=== PATIENT | female | born 1960 | race American Indian/Alaskan Native ===

== ENCOUNTER 2020-06-02 11:21 | Emergency (ER) | payer OTHER ==
[2020-06-02 11:37] VITALS: BP 137/78
[2020-06-02] MEDS ORDERED: dexAMETHasone 20 MG/5 ML VIAL IV ONE (12:40)
[2020-06-02 13:05] LABS: Basophils # (Auto) 0.1 K/mm3 (0.0-0.1); Basophils % (Auto) 0.8 % (0.0-1.8); Eosinophils # (Auto) 0.5 K/mm3 (0.0-0.4); Eosinophils % (Auto) 5.2 % (0.0-4.3); Hematocrit 41.5 % (30.3-42.9); Lymphocytes # (Auto) 2.5 K/mm3 (1.2-5.4); Lymphocytes % (Auto) 26.6 % (13.4-35.0); Mean Corpuscular HGB Conc 34 % (30-34); Mean Corpuscular Volume 90 fl (79-97); Monocytes # (Auto) 0.6 K/mm3 (0.0-0.8); Monocytes % (Auto) 6.1 % (0.0-7.3); Platelet Count 363 K/mm3 (140-440); Red Blood Count 4.61 M/mm3 (3.65-5.03); Red Cell Distribution Width 12.8 % (13.2-15.2)
[2020-06-02 13:14] LABS: Blood Urea Nitrogen 14 mg/dL (7-17); Calcium 10.1 mg/dL (8.4-10.2); Hemolysis Index 0
[2020-06-02 13:24] LABS: BUN/Creatinine Ratio 20
--- NOTE | 2020-06-02 13:57 | Emergency Department Report ---
ED ENT HPI - General Chief complaint: Dental/Oral Stated complaint: FACIAL SWELLING/ORAL Time Seen by Provider: 06/02/20 11:54 Source: patient Mode of arrival: Ambulatory Limitations: No Limitations - History of Present Illness Initial comments: This is a 59-year-old female nontoxic, well nourished in appearance, no acute signs of distress presents to the ED with c/o of left lower mandible swelling and toothache 3 days. Patient she had dental workup a few days prior to these symptoms but has not been placed on any antibiotics. Patient describes t oothache as aching level of 8 out of 10. Patient denies any numbness, tingling, fever, chills, headache, stiff neck, abdominal pain, chest pain, shortness of breath. Patient denies any drug allergies. MD complaint: tooth pain -: days(s) Location: tooth # 1 - pain here Severity: mild Severity scale (0 -10): 8 Quality: aching Consistency: constant Improves with: none Worsens with: none Associated Symptoms: gum swelling, toothache. denies: fever, cough, pain with swallowing, sore throat, tinnitus, hearing loss, discharge from ear, rhinorrhea - Related Data Previous Rx's Medication Instructions Recorded Last Taken Type Chlorhexidine Mouthwash [Peridex] 15 ml MM BID #1 bottle 06/02/20 Unknown Rx Clindamycin [Clindamycin CAP] 300 mg PO Q8H #21 cap 06/02/20 Unknown Rx Allergies Allergy/AdvReac Type Severity Reaction Status Date / Time No Known Allergies Allergy Unverified 06/02/20 11:34 ED Dental HPI - General Chief complaint: Dental/Oral Stated complaint: FACIAL SWELLING/ORAL Time Seen by Provider: 06/02/20 11:54 Source: patient Mode of arrival: Ambulatory Limitations: No Limitations - Related Data Previous Rx's Medication Instructions Recorded Last Taken Type Chlorhexidine Mouthwash [Peridex] 15 ml MM BID #1 bottle 06/02/20 Unknown Rx Clindamycin [Clindamycin CAP] 300 mg PO Q8H #21 cap 06/02/20 Unknown Rx Allergies Allergy/AdvReac Type Severity Reaction Status Date / Time No Known Allergies Allergy Unverified 06/02/20 11:34 ED Review of Systems ROS: Stated complaint: FACIAL SWELLING/ORAL Other details as noted in HPI Comment: All other systems reviewed and negative Constitutional: denies: chills, fever Eyes: denies: eye pain, eye discharge, vision change ENT: dental pain. denies: ear pain, throat pain Respiratory: denies: cough, shortness of breath, wheezing Cardiovascular: denies: chest pain, palpitations Endocrine: no symptoms reported Gastrointestinal: denies: abdominal pain, nausea, diarrhea Genitourinary: denies: urgency, dysuria, discharge Musculoskeletal: denies: back pain, joint swelling, arthralgia Skin: denies: rash, lesions Neurological: denies: headache, weakness, paresthesias Psychiatric: denies: anxiety, depression Hematological/Lymphatic: denies: easy bleeding, easy bruising ED Past Medical Hx - Past Medical History Previous Medical History?: Yes Hx Hypertension: Yes Hx Diabetes: Yes - Surgical History Past Surgical History?: Yes Additional Surgical History: Oral - Social History Smoking Status: Never Smoker Substance Use Type: Alcohol - Medications Home Medications: Home Medications Medication Instructions Recorded Confirmed Last Taken Type Chlorhexidine Mouthwash [Peridex] 15 ml MM BID #1 bottle 06/02/20 Unknown Rx Clindamycin [Clindamycin CAP] 300 mg PO Q8H #21 cap 06/02/20 Unknown Rx ED Physical Exam - General Limitations: No Limitations General appearance: alert, in no apparent distress - Head Head exam: Present: atraumatic, normocephalic - Eye Eye exam: Present: normal appearance - Expanded ENT Exam Expanded Ear exam: Present: normal external inspection Mouth exam: Present: normal external inspection, tongue normal. Absent: drooling, trismus, muffled voice Teeth exam: Present: dental tenderness #, gingival enlargement, other (slight slight left lower mandible swelling) Throat exam: Positive: normal inspection, other (uvula midline). Negative: tonsillar erythema, tonsillomegaly, tonsillar exudate, R peritonsillar mass, L peritonsillar mass - Neck Neck exam: Present: normal inspection, full ROM. Absent: tenderness, meningismus, lymphadenopathy - Respiratory Respiratory exam: Absent: respiratory distress - Cardiovascular Cardiovascular Exam: Present: regular rate - Extremities Exam Extremities exam: Present: full ROM - Back Exam Back exam: Present: full ROM - Neurological Exam Neurological exam: Present: alert, oriented X3, normal gait - Psychiatric Psychiatric exam: Present: normal affect, normal mood - Skin Skin exam: Present: warm, dry, intact, normal color. Absent: rash ED Course Vital Signs 06/02/20 11:36 Temperature 98.6 F Pulse Rate 83 Respiratory 16 Rate Blood Pressure 137/78 O2 Sat by Pulse 98 Oximetry - Reevaluation(s) Reevaluation #1: 06/02/20 13:56 Patient is speaking in full sentences with no signs of distress noted. ED Medical Decision Making - Lab Data Result diagrams: 06/02/20 12:20 06/02/20 12:20 Lab Results 06/02/20 06/02/20 Range/Units 12:20 12:20 WBC 9.3 (4.5-11.0) K/mm3 RBC 4.61 (3.65-5.03) M/mm3 Hgb 14.0 (10.1-14.3) gm/dl Hct 41.5 (30.3-42.9) % MCV 90 (79-97) fl MCH 30 (28-32) pg MCHC 34 (30-34) % RDW 12.8 L (13.2-15.2) % Plt Count 363 (140-440) K/mm3 Lymph % (Auto) 26.6 (13.4-35.0) % [place] % (Auto) 6.1 (0.0-7.3) % Eos % (Auto) 5.2 H (0.0-4.3) % Baso % (Auto) 0.8 (0.0-1.8) % Lymph # (Auto) 2.5 (1.2-5.4) K/mm3 [place] # (Auto) 0.6 (0.0-0.8) K/mm3 Eos # (Auto) 0.5 H (0.0-0.4) K/mm3 Baso # (Auto) 0.1 (0.0-0.1) K/mm3 Seg Neutrophils % 61.3 (40.0-70.0) % Seg Neutrophils # 5.7 (1.8-7.7) K/mm3 Sodium 137 (137-145) mmol/L Potassium 3.9 (3.6-5.0) mmol/L Chloride 98.0 (98-107) mmol/L Carbon Dioxide 27 (22-30) mmol/L Anion Gap 16 mmol/L BUN 14 (7-17) mg/dL Creatinine 0.7 (0.6-1.2) mg/dL Estimated GFR > 60 ml/min BUN/Creatinine Ratio 20 % Glucose 111 H (65-100) mg/dL Calcium 10.1 (8.4-10.2) mg/dL - Radiology Data Referring Physician: LUZ MARIA ALBRIGHT Patient Name: ELDA GERARDO Date of : 1960 Sex: Female Report Date: 2020-06-02 Report Status: [place] [address] Cat Scan Report Signed Patient: ELDA GERARDO MR#: [id number] : 1960 Acct:[id number] Age/Sex: 59 / F ADM Date: 06/02/20 Loc: ED Attending Dr: Ordering Physician: LUZ MARIA ALBRIGHT NP Date of Service: 06/02/20 Procedure(s): CT neck w con Accession Number(s): [id number] cc: LUZ MARIA ALBRIGHT NP CT neck w con INDICATION / CLINICAL INFORMATION: 59 years Female; mandibular pain and swelling. TECHNIQUE: Contiguous thin cut axial images obtained through the neck following IV contrast. Sagittal and coronal reconstructions performed by the technologist. All CT scans at this location are performed using CT dose reduction for ALARA by means of automated exposure control. COMPARISON: None available. FINDINGS: There are notable inflammatory changes involving the left buccal soft tissues. Additionally, there is lucency surrounding the root of the left mandibular incisor inflammatory changes appear to be on an odontogenic basis. There is notable streak artifact resulting from the patient's history artifact. However, there is no clear evidence of well-defined fluid collection on the current study to indicate abscess. MUCOSAL SPACE: No fluid collections are seen involving palatine soft tissues. The epiglottis is appropriate in size at. There is effacement of the left pyriform sinus which may be seen is anatomic variant. There is motion and this region without clear evidence of focal lesion. LYMPH NODES: There are scattered cervical lymph nodes most notably within the left jugulodigastric region with the largest measuring 0.9 cm in short axis dimension. These nodes are likely reactive. A similar sized note is also seen within the adjacent left submandibular region. SALIVARY GLANDS: The visualized parotid and submandibular glands demonstrate symmetric attenuation without calcification. THYROID GLAND: Unremarkable. PARANASAL SINUSES: There are mo derate degenerative disc changes at C5-6. SPINE: No significant abnormality of the cervical spine appreciated. VASCULAR STRUCTURES: Vascular structures are grossly normal in appearance. IMPRESSION: 1. There are notable inflammatory changes involving the visualized left buccal soft tissues. Furthermore, there is lucency surrounding the root of the left mandibular incisor and the inflammatory changes would appear to be on an odontogenic basis as detailed above. Signer Name: Chintan Faulkner MD Signed: 06/02/2020 3:36 PM Workstation Name: [id number] Transcribed By: MR Dictated By: Chintan Faulkner MD Electronically Authenticated By: Chintan Faulkner MD Signed Date/Time: 06/02/206 DD/ 152 TD/TT: - Medical Decision Making 59-year-old female that presents with left mandible swelling and dental pain. Patient is stable and was examined by me. Patient received Decadron and clindamycin prior to CT results. Patient be treated with clindamycin. Patient is notified of the CT and lab results with no questions noted by the patient. Patient was instructed to follow-up with a dentist doctor in 3-5 days or if symptoms worsen and continue return to emergency room as soon as possible. At time of discharge, the patient does not seem toxic or ill in appearance. No acute signs of distress noted. Patient agrees to discharge treatment plan of care. No further questions noted by the patient. Critical care attestation.: If time is entered above; I have spent that time in minutes in the direct care of this critically ill patient, excluding procedure time. ED Disposition Clinical Impression: Pain, dental, Swelling of mandible, Gingivitis Disposition: TO HOME OR SELFCARE Is pt being admited?: No Does the pt Need Aspirin: No Condition: Stable Instructions: Dental Abscess Additional Instructions: Follow-up with a dentist doctor in 3-5 days or if symptoms worsen and continue return to emergency room as soon as possible. Prescriptions: Clindamycin [Clindamycin CAP] 300 mg PO Q8H #21 cap Chlorhexidine Mouthwash [Peridex] 15 ml MM BID #1 bottle Referrals: PRIMARY CAREMD [Primary Care Provider] - 3-5 Days NICHOLAS ERNANDEZ MD [Staff Physician] - 3-[address] [facility] [Outside] - 3-5 Days Time of Disposition: 16:05
--- NOTE | 2020-06-02 15:40 | Cat Scan Report ---
CT neck w con INDICATION / CLINICAL INFORMATION: 59 years Female; mandibular pain and swelling. TECHNIQUE: Contiguous thin cut axial images obtained through the neck following IV contrast. Sagittal and hahn l reconstructions performed by the technologist. All CT scans at this location are performed using CT dose reduction for ALARA by means of automated exposure control. COMPARISON: None available. FINDINGS: There are notable inflammatory changes involving the left buccal soft tissues. Additionally , there is lucency surrounding the root of the left mandibular incisor inflammatory changes appear to be on an odontogenic basis. There is notable streak artifact resulting from the patient's history ar tifact. However, there is no clear evidence of well-defined fluid collection on the current study to indicate abscess. MUCOSAL SPACE: No fluid collections are seen involving palatine soft tissues. The epiglottis is appro priate in size at. There is effacement of the left pyriform sinus which may be seen is anatomic varia nt. There is motion and this region without clear evidence of focal lesion. LYMPH NODES: There are scattered cervical lymph nodes most notably within the left jugulodigastric re gion with the largest measuring 0.9 cm in short axis dimension. These nodes are likely reactive. A si milar sized note is also seen within the adjacent left submandibular region. SALIVARY GLANDS: The visualized parotid and submandibular glands demonstrate symmetric attenuation wi thout calcification. THYROID GLAND: Unremarkable. PARANASAL SINUSES: There are moderate degenerative disc changes at C5-6. SPINE: No significant abnormality of the cervical spine appreciated. VASCULAR STRUCTURES: Vascular structures are grossly normal in appearance. IMPRESSION: 1. There are notable inflammatory changes involving the visualized left buccal soft tissues. Furtherm ore, there is lucency surrounding the root of the left mandibular incisor and the inflammatory change s would appear to be on an odontogenic basis as detailed above. Signer Name: Chintan Faulkner MD Signed: 06/02/2020 3:36 PM Workstation Name: [id number]
== END 2020-06-02 16:49 | disposition home or self-care (01) ==
LOC: ED 11:21
DX: K05.10 Chronic gingivitis, plaque induced (principal); K08.89 Other specified disorders of teeth and supporting structures; R22.0 Localized swelling, mass and lump, head; I10 Essential (primary) hypertension; E11.9 Type 2 diabetes mellitus without complications; Z98.890 Other specified postprocedural states; Z79.2 Long term (current) use of antibiotics; Z79.899 Other long term (current) drug therapy
CPT/HCPCS: 36415; 70491; 80048; 85025; 96365; 96375; 99284; J1100; Q9967